=== PATIENT | female | born 1940 | race Caucasian/White ===

== ENCOUNTER 2020-06-10 03:01 | Emergency (ER) | payer MEDICARE, BC, SELFPAY ==
[2020-06-10 03:03] VITALS: BP 157/81; PULSE 66; RESP 16; TEMP 36.8; O2SAT 97; BMI 24.4
--- NOTE | 2020-06-10 03:13 | CT_ITS ---
PROCEDURE: CT HEAD/BRAIN WO CON CLINICAL INDICATION: fall, closed head injury COMPARISON: No exams were available for comparison TECHNIQUE: Axial images obtained. All CT scans at the facility use one or more dose reduction, viz: automated exposure control, ma/kV adjustment per patient size (including targeted exams where dose is matched to indication, i.e. head), or iterative reconstruction technique. FINDINGS: No midline shift, mass effect, intracranial hemorrhage, hydrocephalus, or extra-axial fluid collection is evident. The basilar cisterns are prominent. The sylvian fissures and cortical sulci are moderately prominent. There are mild atrophic changes of the cerebellar hemispheres as well. The calvarium has an unremarkable appearance. There is focal scalp swelling left forehead and left frontal region with an apparent laceration. No mastoid effusion. No sinus air-fluid level. IMPRESSION: Findings of cortical and cerebellar atrophy with focal scalp contusion with laceration left frontal region, no skull fracture seen Dictated by: Dr. Monroe Mcmillan MD 06/10/2020 08:24 Dr. Monroe Mcmillan MD in [facility] 06/10/2020 08:24
--- NOTE | 2020-06-10 03:26 | [facility].EDGENADL ---
ED Disposition Clinical Impression: Laceration Closed head injury Qualifiers: Encounter type: initial encounter Qualified Code(s): S09.90XA - Unspecified injury of head, initial encounter Disposition: Home, Self-Care Condition on Discharge: Good Instructions: DI for Laceration Repair Additional Instructions: Have your sutures removed (6) in 3-5 days. Return with concerns or signs of infection. Referrals: PCP,No [Primary Care Provider] - - Critical Care Critical Care Time: No Attestation: On 06/10/20, the high probability of a clinically significant, sudden or life threatening deterioration of the following system(s) required my full and direct attention, intervention and personal management. The time I documented below is in addition to time spent performing reported procedures but includes the following listed in this critical care notation. Medical Decision Making - Medical Records Medical records reviewed: Yes: I reviewed the patient's medical records. - Alfredo Inquiry Pt receiving controlled substance: No Vital Signs: 06/10/20 03:03 06/10/20 06:11 Temperature 98.2 F 98.2 F Temperature Source Oral Pulse Rate 57 L Pulse Rate [Left Radial] 66 Respiratory Rate 16 16 Blood Pressure 141/99 H Blood Pressure [Right Arm] 157/81 H Blood Pressure Mean [Right Arm] 106 Blood Pressure Source [Right Arm] Automatic Cuff Blood Pressure Position [Right Arm] Supine 02 Sat by Pulse Oximetry 97 Oxygen Delivery Method Room Air Room Air - Lab Data Lab Results 06/10/20 04:00: WBC 6.8, RBC 4.32, Hgb 13.9, Hct 42.1, MCV 97.4, MCH 32.1 H, MCHC 33.0, RDW 13.1, Plt Count 261, MPV 8.7, Neut % (Auto) 54.2, Lymph % (Auto) 34.3, [place] % (Auto) 8.1, Eos % (Auto) 2.6, Baso % (Auto) 0.8, Neut # (Auto) 3.7, Lymph # (Auto) 2.3, [place] # (Auto) 0.6, Eos # (Auto) 0.2, Baso # (Auto) 0.1 06/10/20 04:00: Sodium 137, Potassium 3.6, Chloride 101, Carbon Dioxide 30, Anion Gap 9.6, BUN 33 H, Creatinine 1.00, Estimated Creat Clear 37, Estimated GFR 53 L, Est GFR ( Amer) 64, Glucose 132 H, Calcium 10.7 H, Magnesium 2.0, Total Bilirubin 0.7, AST 30, ALT 15, Alkaline Phosphatase 88, NT-Pro-B Natriuret Pep 307, Total Protein 7.7, Albumin 4.6, Globulin 3.1, Albumin/Globulin Ratio 1.5 06/10/20 04:00: PT 11.2, INR 1.01 Result diagrams: 06/10/20 04:00 06/10/20 04:00 Orders (Tests/Meds): ED MEDICATIONS Discontinued Medications Generic Name Dose Route Start Last Admin Trade Name Freq PRN Reason Stop Dose Admin Ibuprofen 600 mg 06/10/20 04:29 06/10/20 04:30 Ibuprofen 600 Mg Tablet PO 06/10/20 04:30 600 mg ONCE ONE Administration ORDERS Category Date Time Status CT head/brain wo con Stat Cat Scan 06/10/20 03:13 [address] Request by Dr/Nse Stat Y 06/10/20 03:13 Ordered Medical Decision Narrative: The patient is an 80 year old female who presents after fall. No blood thinners. Has a laceration over her left eyebrow otherwise no other injuries. Patient complains of weakness. Labs including CBC, CMP, EKG, BNP, INR were obtained. CT head was obtained. Labs were unremarkable. CT head was normal. Patient's laceration was repaired. Patient was able to ambulate and tolerate PO in the ED. Will discharge home with return precautions. General Adult HPI - General Chief complaint: Wound/Laceration Stated complaint: Fall;Bleeding from left side of tenriism Time Seen by Provider: 06/10/20 03:03 Mode of Arrival: Wheelchair Limitations: No Limitations Description of Symptoms (Recalled from ER Triage Doc. by RN): Pt states she tripped getting out of bed and hit her head on a small shelf. She denies LOC. Only c/o pain to site of injury. apro. 3cm LAC to left tenriism. - History of Present Illness HPI narrative: Patient is an 80 year old female with a history of dementia, HTN, HLD who presents after fall. Patient states she accidentally rolled out of bed. She did not lose consciousness. No blood thinners. She did hit h
--- NOTE | 2020-06-10 04:04 | ECG_ITS ---
APPROVED REPORT Exam: Resting ECG HR:59 bpm ECG Measurements Heart Rate 59 AXES UT 164 P 73 QRSd 104 QRS 34 QT 426 T 59 QTc 421 Conclusion Sinus bradycardia with fusion complexes Late R-wave progression Abnormal ECG Electronically signed by : Kev Cuellar, 06/10/2020 10:32:11
[2020-06-10 04:13] LABS: Basophils # 0.1 K/mm3 (0-0.2); Basophils % 0.8 % (0.1-2.0); Eosinophils # 0.2 K/mm3 (0.0-0.4); Eosinophils % 2.6 % (0.1-12.0); Hematocrit 42.1 % (37.0-47.0); Hemoglobin 13.9 g/dL (12.2-16.2); Lymphocytes # 2.3 K/mm3 (0.7-4.5); Lymphocytes % 34.3 % (10-50); Mean Corpuscular Hemoglobin 32.1 pg (27.0-31.2); Mean Corpuscular Volume 97.4 fl (81-99); Mean Platelet Volume 8.7 fl (7.4-10.4); Monocytes # 0.6 K/mm3 (0.1-1.0); Monocytes % 8.1 % (1.7-9.3); Neutrophils # 3.7 K/mm3 (1.8-7.8); Neutrophils % 54.2 % (37.0-80.0); Platelet Count 261 K/mm3 (142-424); Red Blood Count 4.32 M/mm3 (4.20-5.40); Red Cell Distribution Width 13.1 % (11.5-17.5); White Blood Count 6.8 K/mm3 (4.8-10.8)
[2020-06-10 04:26] LABS: Alanine Aminotransferase 15 U/L (12-78); Albumin Level 4.6 g/dl (3.5-5.0); Albumin/Globulin Ratio 1.5 (1.1-1.8); Alkaline Phosphatase 88 U/L (38-126); Anion Gap 9.6 mEq/L (5-15); Aspartate Amino Transferase 30 U/L (14-36); Bilirubin,Total 0.7 mg/dl (0.2-1.3); Blood Urea Nitrogen 33 mg/dl (7-17); Calcium 10.7 mg/dl (8.4-10.2); Carbon Dioxide 30 mmol/L (22.0-30.0); Chloride 101 mmol/L (98-107); Creatinine Clearance Estimated 37 mL/min (50-200); Estimated Glomerular Filt Rate 53 ml/min (>60); GFR (African American) 64 ML/MIN (>60); Globulin 3.1 g/dL (1.3-3.2); Glucose 132 mg/dl (74-100); Potassium 3.6 mmoL/L (3.5-5.1); Sodium 137 mmol/L (136-145); Total Protein,Serum 7.7 g/dl (6.3-8.2)
[2020-06-10 04:33] LABS: INR 1.01 (0.9-1.1); Prothrombin Time 11.2 seconds (9.4-11.8)
[2020-06-10 04:35] LABS: NT Pro Brain Natriuretic Pep. 307 pg/mL (0-450)
[2020-06-10 06:11] VITALS: BP 141/99; PULSE 57; RESP 16; TEMP 36.8; O2SAT 95
== END 2020-06-10 06:14 | disposition home or self-care (01) ==
PROVIDERS: Emergency Provider Emergency Medicine
DX: S01.112A Laceration without foreign body of left eyelid and periocular area, initial encounter (principal); W01.190A Fall on same level from slipping, tripping and stumbling with subsequent striking against furniture, initial encounter; Y92.013 Bedroom of single-family (private) house as the place of occurrence of the external cause; I10 Essential (primary) hypertension; E78.5 Hyperlipidemia, unspecified; F03.90 Unspecified dementia, unspecified severity, without behavioral disturbance, psychotic disturbance, mood disturbance, and anxiety; Z88.5 Allergy status to narcotic agent; R94.31 Abnormal electrocardiogram [ECG] [EKG]; R53.1 Weakness; Z79.899 Other long term (current) drug therapy
CPT/HCPCS: 12011; 70450; 80053; 83735; 83880; 85025; 85610; 93005; 99283